=== PATIENT | female | born 1970 | race Hispanic/Latino ===

== ENCOUNTER → 2024-05-02 | Outpatient (CLI) | payer BC ==
[~2024-05-02] VITALS: Ht 12.7 cm; Wt 103.0 kg
[2024-05-02 08:45] LABS: BASOPHILS # (AUTO) 0.03 K/uL (0.00-0.20); BASOPHILS % (AUTO) 0.4 % (0.0-5.0); EOSINOPHILS # (AUTO) 0.28 K/uL (0.00-0.70); EOSINOPHILS % (AUTO) 3.7 % (0.0-8.0); HEMATOCRIT 39.9 % (36-48); IMMATURE GRANULOCYTE ABSOLUTE 0.03 K/uL (0-1); LYMPHOCYTES # (AUTO) 1.6 K/uL (1.0-4.8); LYMPHOCYTES % (AUTO) 21.3 % (21.0-51.0); MEAN CORPUSCULAR HEMOGLOBIN 31.5 pg (27.0-33.0); MEAN CORPUSCULAR HGB CONC 34.1 g/dL (32.0-36.0); MEAN CORPUSCULAR VOLUME 92.4 fL (79-99); MONOCYTES # (AUTO) 0.4 K/uL (0.1-1.0); MONOCYTES % (AUTO) 5.6 % (3.0-13.0); NEUTROPHILS # (AUTO) 5.3 K/uL (1.8-7.7); NEUTROPHILS % (AUTO) 68.6 % (40.0-77.0); PLATELET COUNT (AUTO) 291 K/uL (130-400); RED BLOOD CELL COUNT(AUTO) 4.32 MIL/uL (4.00-5.50); RED CELL DISTRIBUTION WIDTH 11.7 % (11.0-15.5); WHITE BLOOD COUNT (AUTO) 7.7 K/uL (4.8-10.8)
[2024-05-02 08:56] LABS: HEMOGLOBIN A1C 5.1 % (4.0-6.0)
== END | disposition home or self-care (01) ==
LOC: LAB 08:06
PROVIDERS: ATTEND Surgery
DX: Z01.818 Encounter for other preprocedural examination (principal); E66.01 Morbid (severe) obesity due to excess calories; G47.33 Obstructive sleep apnea (adult) (pediatric); K21.9 Gastro-esophageal reflux disease without esophagitis; Z68.36 Body mass index [BMI] 36.0-36.9, adult
CPT/HCPCS: 36415; 71045; 80061; 82947; 83036; 84443; 85025; 93005; 97802

== ENCOUNTER → 2024-06-21 | Outpatient (CLI) | payer OTHER | END | disposition home or self-care (01) | LOC: DTH 10:48 | PROVIDERS: ATTEND Surgery | DX: G47.33 Obstructive sleep apnea (adult) (pediatric) (principal); K21.9 Gastro-esophageal reflux disease without esophagitis; E66.09 Other obesity due to excess calories; E78.00 Pure hypercholesterolemia, unspecified; Z68.37 Body mass index [BMI] 37.0-37.9, adult; Z71.3 Dietary counseling and surveillance | CPT/HCPCS: 97803 ==

== ENCOUNTER 2024-09-14 06:31 | Observation (INO) | payer BC, OTHER, SELFPAY ==
[2024-09-11 14:44] LABS: BASOPHILS # (AUTO) 0.01 K/uL (0.00-0.20); BASOPHILS % (AUTO) 0.1 % (0.0-5.0); EOSINOPHILS # (AUTO) 0.13 K/uL (0.00-0.70); EOSINOPHILS % (AUTO) 1.5 % (0.0-8.0); HEMATOCRIT 37.3 % (36-48); IMMATURE GRANULOCYTE ABSOLUTE 0.02 K/uL (0-1); LYMPHOCYTES # (AUTO) 1.8 K/uL (1.0-4.8); LYMPHOCYTES % (AUTO) 20.8 % (21.0-51.0); MEAN CORPUSCULAR HEMOGLOBIN 30.7 pg (27.0-33.0); MEAN CORPUSCULAR HGB CONC 34.9 g/dL (32.0-36.0); MEAN CORPUSCULAR VOLUME 88.2 fL (79-99); MONOCYTES # (AUTO) 0.4 K/uL (0.1-1.0); MONOCYTES % (AUTO) 5.2 % (3.0-13.0); NEUTROPHILS # (AUTO) 6.1 K/uL (1.8-7.7); NEUTROPHILS % (AUTO) 72.2 % (40.0-77.0); PLATELET COUNT (AUTO) 276 K/uL (130-400); RED BLOOD CELL COUNT(AUTO) 4.23 MIL/uL (4.00-5.50); RED CELL DISTRIBUTION WIDTH 11.9 % (11.0-15.5); WHITE BLOOD COUNT (AUTO) 8.5 K/uL (4.8-10.8)
[2024-09-11 14:53] LABS: CREATININE 0.5 mg/dL (0.5-1.0); POTASSIUM 3.5 mmol/L (3.5-5.1)
[2024-09-11 14:57] LABS: INR 1.03 (0.85-1.15); PROTHROMBIN TIME 11.5 SEC (9.6-11.6)
[2024-09-11 14:58] LABS: PARTIAL THROMBOPLASTIN TIME 32.2 SEC (26.3-35.5)
[2024-09-11 15:00] VITALS: BP 122/78; PULSE 82; RESP 18; TEMP 97.4
[2024-09-14] VITALS (30 sets, daily range): BP systolic 110–151; BP diastolic 67–81; PULSE 59–89; RESP 10–20; TEMP 97.1–98; O2SAT 97–99
[~2024-09-14] VITALS: Ht 162.6 cm; Wt 102.0 kg
[2024-09-14] MEDS ORDERED: ketaMINE 50MG/ML SYRINGE 50 MG/ML DISP.SYRIN ONE (07:03)
[2024-09-14] MEDS ORDERED: rocuRONium bROMide 10MG/1ML 5ML VL ONE (07:15)
[2024-09-14] MEDS ORDERED: FENTanyl CITRate PF 50 MCG/1 ML 2ML VIAL ONE (07:15)
[2024-09-14] MEDS ORDERED: BUPIvacaine/PF 0.25% 30ML VIAL IJ ONE (07:15)
[2024-09-14] MEDS ORDERED: proPOFol 10 MG/ML 20ML VIAL IV ONE (07:15)
[2024-09-14] MEDS ORDERED: LIDOCAINE 1%-EPI 1:100,000 20 ML VIAL ONE (07:16)
[2024-09-14] MEDS ORDERED: LIDOCAINE PF 100MG/5ML (2%) SYRINGE 5ML ONE (07:24)
[2024-09-14] MEDS ORDERED: MIDAZOLAM HCL 1 MG/ML 2ML VIAL ONE (07:25)
[2024-09-14] MEDS: ceFAZolin SODIUM 2 GM VIAL ONE (08:15)
[2024-09-14] MEDS: LACTATED RINGERS 1000ML 1,000 ML IV ONE (08:16)
[2024-09-14] MEDS ORDERED: MULT-1203 PO (08:16)
[2024-09-14] MEDS: metRONIDazole 500MG/100ML BAG 200 ML ONE (08:16)
[2024-09-14] MEDS ORDERED: dexaMETHasone SOD PHOSPHATE 10MG/ML 1ML VIAL ONE (08:23)
[2024-09-14] MEDS ORDERED: ondanSETRON 4MG INJ ONE (08:23)
[2024-09-14] MEDS: ceFAZolin SODIUM 2 GM VIAL IVPB ONE (08:28)
[2024-09-14] MEDS ORDERED: phenylEPHRINE HCL 10 MG/ML 1ML VIAL IV ONE (08:37)
[2024-09-14] MEDS ORDERED: NEOSTIGMINE METHYLSULFATE 1MG/ML IV ONE (09:16)
[2024-09-14] MEDS ORDERED: GLYCOPYRROLATE 0.2 MG/ML 5 ML VIAL ONE (09:16)
[2024-09-14] MEDS: BUPIvacaine/PF 0.25% 30ML VIAL IJ ONE (09:30)
--- NOTE | 2024-09-14 09:30 | OP ---
Operative Note: DATE OF PROCEDURE: 09/14/24 SURGEON: MAIA SCHAFFER MD WEB SITE ADMIN: Raj Schaffer MD PA-C ANESTHESIA: General and Local ANESTHESIOLOGIST/PAINT MIXER: [facility] [place] anesthesia team PREOPERATIVE DIAGNOSIS: Morbid obesity and associated comorbid conditions POSTOPERATIVE DIAGNOSIS: As above SYNOPSIS: Sleeve gastrectomy performed without incident PROCEDURE: 1. Robotic assisted sleeve gastrectomy 2. Omentoplasty to reinforced cut edge of stomach 3. EGD ESTIMATED BLOOD LOSS: Minimal, less than 30 cc INDICATIONS: As above DESCRIPTION OF PROCEDURE: After standard precautions and preparations were undertaken a Veress needle and optical trocar were used to enter the abdominal cavity. All other instruments were placed under direct vision. The robotic system was docked in the standard fashion. We began by mobilizing the greater curve of the stomach with care taken to preserve the blood supply to the antrum. Mobilization was taken to the level of the angle of his. Once this was completed my partner passed a 40 [place] bougie down into the stomach for decompression and proper sizing during the stapling portion of the case. A linear stapler with staple line reinforcement was used used to initiate stapling. Once the stapling was complete the bougie was removed and the EGD scope was passed down in its stead. I remained at the robotic console suturing the nearby omentum to the cut edge of the stomach in order to reinforced the closure. My partner utilize the EGD sc ope to verify that the anatomy was appropriate post partial gastrectomy. The mucosa appeared healthy and well perfused. Insufflation under fluid showed no signs of leak or problem. Care was taken to avoid over tightening the incisura, causing any twisting or turning of the body of the stomach, or stapling onto the GE junction. When the anatomy was deemed appropriate the EGD scope was removed. We removed the partial gastrectomy specimen through one of our lateral trocar sites and sutured the fascia at that site to prevent future hernia. At the end of the case all instrument counts were verified as correct including needles and sponges. Patient tolerated the procedure well and was prepared for extubation and transferred to PACU in stable condition. MAIA SCHAFFER MD Sep 14, 2024 09:30
[2024-09-14] MEDS: ENOXAPARIN SODIUM 40 MG/0.4 ML SYRINGE SQ SCH (10:00)
[2024-09-14] MEDS ORDERED: ondanSETRON 4MG INJ IVP PRN (10:00)
[2024-09-14] MEDS ORDERED: PROCHLORPERAZINE 10MG/2ML INJ IV PRN (10:00)
[2024-09-14] MEDS: MEPERIDINE-PF 25 MG/ML SYG ONE ×2 (10:07→10:22)
[2024-09-14] MEDS: ondanSETRON 4MG INJ ONE (10:19)
[2024-09-14] MEDS: PROMETHAZINE HCL 25 MG/ML 1ML AMPULE IM ONE (10:20)
--- NOTE | 2024-09-14 10:55 | NUR ---
ARRIVED FROM PACU LETHARGIC, BUT ORIENTED X4, PAIN RATING 6/10 TO ABDOMEN. VITALS STABLE, ON 2L OXYGEN RESPIRATORY THERAPIST CALLED FOR INCENTIVE SPIROMETER.
[2024-09-14] MEDS: ketOROlac 30MG VIAL (30MG/ML) IV PRN (11:26)
[2024-09-14] MEDS: FAMOTIDINE 20MG VIAL IV ONE (13:08)
[2024-09-14] MEDS: acetaMINOPHEN 100 ML ONE (13:08)
[2024-09-14] MEDS: dexmedeTOMIDine HCL 200 MCG/2 ML VIAL IV ONE (13:09)
[2024-09-14] MEDS: LACTATED RINGERS 1000ML 1,000 ML IV SCH (13:09)
[2024-09-14] MEDS: metoCLOPRAmide 10 MG/2 ML VIAL ONE (13:09)
[2024-09-14] MEDS: hydroMORPHone 1 MG INJ IVP PRN (13:23)
--- NOTE | 2024-09-14 18:02 | NUR ---
PT attempted at 1400, patient had been given pain meds and was not able to wake enough . Per family patient has already ambulated in room.
[2024-09-14] MEDS: FAMOTIDINE 20MG VIAL IV SCH (20:21)
[2024-09-14] MEDS: HYDROcod/acetaMINOPHEN 7.5/325 MG 15 ML UDCUP PO PRN (21:59)
[2024-09-15 04:00] VITALS: BP 152/78; PULSE 67; RESP 19; TEMP 97.8
[2024-09-15 08:00] VITALS: BP 123/78; PULSE 57; RESP 18; TEMP 97.6; O2SAT 100
[2024-09-15] MEDS ORDERED: hydroMORPHone 0.5 MG SYG (0.5MG/0.5ML) IVP PRN (09:00)
--- NOTE | 2024-09-15 10:05 | DS ---
Problems: (1) Obesities, morbid Discharge Summary Hospital Course No acute events overnight. Patient's VSS. She is tolerating clear fluids without any n/v. BBS are clear. I/S At bedside and encouraged. ABd is soft and not distended. Active BS present. She is passing flatus; voiding without difficulties. Ambulation encouraged tid. Home care instructions given with ER warnings. instructed to keep f/u appt at [facility] on 09/21/24. She verbalized unde rstanding and agreement. NUNO THACKER NP Sep 15, 2024 10:05
[2024-09-15] MEDS ORDERED: ketOROlac 15MG/ML VIAL (15MG/ML) IV PRN (11:00)
--- NOTE | 2024-09-15 13:50 | NUR ---
DCP Pt awake, alert, oriented X3 lives with spouse Bladimir Louis [phone]. Previous level of function independent able to perform ADLs. Anticipates discharge is for home. Addendum: 09/15/24 at 1354 by HERMAN LAUREN RN CM Amended: Links added.
--- NOTE | 2024-09-15 15:36 | NUR ---
Pt is independently ambulating in schaeffer and transferring. No PT needs.
--- NOTE | 2024-09-15 15:40 | NUR ---
discharged patient given discharged printed instructions, educated patient and family on postop care, follow up visits, diet/activity, and medications. answered pt questions, patient and family understood.
== END 2024-09-15 15:40 | disposition home or self-care (01) ==
LOC: DAH 06:31 → DAHIP 06:32 → 3AH 10:55
PROVIDERS: ADMIT Surgery; ATTEND Surgery
DX: E66.01 Morbid (severe) obesity due to excess calories (principal); G47.30 Sleep apnea, unspecified; F41.9 Anxiety disorder, unspecified; F32.A Depression, unspecified; Z90.710 Acquired absence of both cervix and uterus; Z68.38 Body mass index [BMI] 38.0-38.9, adult; Z86.2 Personal history of diseases of the blood and blood-forming organs and certain disorders involving the immune mechanism; Z79.899 Other long term (current) drug therapy
CPT/HCPCS: 80048; 85025; 85610; 85730; 86850; 86900; 86901; 36415; 43775; 96374; 96376 ×2; 96372 ×2; 96375; 88312; 88307; A6260; G0378 ×28; A4663; J7030; A4215 ×2; J7120; J3490 ×9; J3010; J1171; J1100; J0665 ×2; J2550; J2003; J2250; J2704; J2405 ×2; J1885 ×3; J2710; J1650 ×2; J2175 ×2; J2765; J2371; J0690 ×2; A4930; A4223 ×2; A4213; A4222; A4221; A4216; A4600; 43235

== ENCOUNTER → 2025-02-22 | Outpatient (CLI) | payer BC ==
[~2025-02-22] MED LIST: MULT-1203 PO
[2025-02-22 08:14] LABS: BASOPHILS # (AUTO) 0.01 K/uL (0.00-0.20); BASOPHILS % (AUTO) 0.2 % (0.0-5.0); EOSINOPHILS # (AUTO) 0.26 K/uL (0.00-0.70); EOSINOPHILS % (AUTO) 4.6 % (0.0-8.0); HEMATOCRIT 36.6 % (36-48); IMMATURE GRANULOCYTE ABSOLUTE 0.02 K/uL (0-1); LYMPHOCYTES # (AUTO) 1.5 K/uL (1.0-4.8); LYMPHOCYTES % (AUTO) 25.8 % (21.0-51.0); MEAN CORPUSCULAR HEMOGLOBIN 31.4 pg (27.0-33.0); MEAN CORPUSCULAR HGB CONC 34.7 g/dL (32.0-36.0); MEAN CORPUSCULAR VOLUME 90.6 fL (79-99); MONOCYTES # (AUTO) 0.3 K/uL (0.1-1.0); MONOCYTES % (AUTO) 4.8 % (3.0-13.0); NEUTROPHILS # (AUTO) 3.6 K/uL (1.8-7.7); NEUTROPHILS % (AUTO) 64.2 % (40.0-77.0); PLATELET COUNT (AUTO) 205 K/uL (130-400); RED BLOOD CELL COUNT(AUTO) 4.04 MIL/uL (4.00-5.50); RED CELL DISTRIBUTION WIDTH 11.7 % (11.0-15.5); WHITE BLOOD COUNT (AUTO) 5.7 K/uL (4.8-10.8)
[2025-02-22 08:23] LABS: HEMOGLOBIN A1C 5.2 % (4.0-6.0)
[2025-02-22 08:33] LABS: % IRON SATURATION 35.5 % (22-44)
[2025-02-22 08:52] LABS: ALANINE AMINOTRANSFERASE 64 U/L (12-78); ALBUMIN 3.7 g/dL (3.5-5.0); ASPARTATE AMINOTRANSFERASE 45 U/L (10-37); BILIRUBIN,TOTAL 0.6 mg/dL (0.2-1.0); CARBON DIOXIDE 31 mmol/L (21-32); CHLORIDE 106 mmol/L (101-111); CHOLESTEROL 165 mg/dL (<200); CREATININE 0.7 mg/dL (0.5-1.0); FERRITIN 223 ng/mL (15-150); GLOMERULAR FILTR. RATE CALC 103 mL/min (>90); GLUCOSE,RANDOM 88 mg/dL (70-105); HDL CHOLESTEROL 62 mg/dL (35-85); LDL DIRECT 94 mg/dL (0-99); POTASSIUM 3.7 mmol/L (3.5-5.1); SODIUM SERUM 142 mmol/L (136-145); THYROID STIMULATING HORMONE 2.36 uIU/mL (0.36-3.74); TOTAL PROTEIN, SERUM 7.9 g/dL (6.0-8.3); TRIGLYCERIDES 41 mg/dL (30-200); UREA NITROGEN, BLOOD 15 mg/dL (7-18)
== END | disposition home or self-care (01) ==
LOC: LAB 07:16
PROVIDERS: ATTEND Surgery
DX: E66.01 Morbid (severe) obesity due to excess calories (principal)
CPT/HCPCS: 36415; 80050; 80053; 80061; 82306; 82607; 82728; 82746; 83036; 83540; 83550; 84439; 84443; 84590; 85025